=== PATIENT | female | born 1950 | race Caucasian/White ===

== ENCOUNTER → 2021-11-18 | Outpatient (CLI) | payer MEDICARE, BC | LOC: MAMMO 07:46 | PROVIDERS: ATTEND Family Medicine | DX: Z12.31 Encounter for screening mammogram for malignant neoplasm of breast (principal) | CPT/HCPCS: 77067 ==

== ENCOUNTER → 2022-06-27 | Day surgery (SDC) | payer MEDICARE, BC ==
[2022-06-23 10:37] LABS: BASOPHILS # (AUTO) 0.1 (0.0-0.1); BASOPHILS % 1.2 % (0.0-1.0); EOSINOPHILS # (AUTO) 0.4 (0.0-0.4); HEMATOCRIT 45.2 % (34.2-44.1); HEMOGLOBIN 14.5 g/dL (12.0-16.0); LYMPHOCYTES # (AUTO) 2.1 (1.0-3.2); LYMPHOCYTES % 35.5 % (18.0-39.1); MEAN CORPUSCULAR HEMOGLOBIN 28.4 pg (28-32); MEAN CORPUSCULAR HGB CONC 32.1 g/dL (31-35); MEAN CORPUSCULAR VOLUME 88.6 fL (81-99); MONOCYTES # (AUTO) 0.4 (0.2-0.8); MONOCYTES % 7.3 % (4.4-11.3); NEUTROPHILS % 49.5 % (38.7-80.0); PLATELET COUNT 250 x10e3/uL (140-360)
[~2022-06-27] MED LIST: AMLODIPINE BESYL5 MG PO; ASPIRIN81 MG PO; ATORVASTATIN CA20 MG PO; CIPROFLOXACIN500 MG PO; FARXIGA10 MG PO; FISH OIL 1,0001 EA10 PO; K2 PLUS D3 TAB1 EACH PO; LISINOPRIL10 MG PO; METOPROLOL TART50 MG PO; PROPOFOL IV EMULSION 10 MG/ML 20 ML VIAL ONE
[2022-06-27 13:20] VITALS: BP 121/66
== END | disposition home or self-care (01) ==
LOC: OR 08:32
PROVIDERS: ATTEND Internal Medicine Gastroenterology
DX: Z09 Encounter for follow-up examination after completed treatment for conditions other than malignant neoplasm (principal); D12.2 Benign neoplasm of ascending colon; K62.1 Rectal polyp; K57.30 Diverticulosis of large intestine without perforation or abscess without bleeding; K64.8 Other hemorrhoids; K21.9 Gastro-esophageal reflux disease without esophagitis; I10 Essential (primary) hypertension; E11.9 Type 2 diabetes mellitus without complications; E78.5 Hyperlipidemia, unspecified; I44.0 Atrioventricular block, first degree; N20.0 Calculus of kidney; N39.0 Urinary tract infection, site not specified; Z88.0 Allergy status to penicillin; F32.A Depression, unspecified; Z01.810 Encounter for preprocedural cardiovascular examination; Z01.812 Encounter for preprocedural laboratory examination; Z20.822 Contact with and (suspected) exposure to COVID-19; Z79.84 Long term (current) use of oral hypoglycemic drugs; Z79.899 Other long term (current) drug therapy; Z68.28 Body mass index [BMI] 28.0-28.9, adult
CPT/HCPCS: 0223U; 36415 ×2; 45380; 45385; 82948; 85025; 88305; 93005; J2704; 45378

== ENCOUNTER → 2022-11-21 | Outpatient (CLI) | payer MEDICARE, BC ==
[~2022-11-21] MED LIST changes: -PROPOFOL IV EMULSION 10 MG/ML 20 ML VIAL ONE
== END ==
LOC: MAMMO 08:04
PROVIDERS: ATTEND Family Medicine
DX: Z12.31 Encounter for screening mammogram for malignant neoplasm of breast (principal)
CPT/HCPCS: 77067